=== PATIENT | male | born 1990 | race American Indian/Alaskan Native ===

== ENCOUNTER 2018-04-16 17:04 | Emergency (ER) | payer SELFPAY ==
[2018-04-16 17:38] VITALS: BP 123/85
--- NOTE | 2018-04-16 20:48 | XRay Report ---
FINAL REPORT PROCEDURE: Right foot. TECHNIQUE: Three portable views. HISTORY: Swollen. COMPARISON: No prior studies are available for comparison. FINDINGS: The bones appear intact without fracture or dislocation. 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 The remaining joint spaces appear normal. The soft tissues are unremarkable. IMPRESSION: No significant abnormality.
== END 2018-04-16 19:30 | disposition left against medical advice (07) ==
LOC: ED 17:04
DX: M79.673 Pain in unspecified foot (principal); Z53.21 Procedure and treatment not carried out due to patient leaving prior to being seen by health care provider